=== PATIENT | female | born 1985 | race Caucasian/White ===

== ENCOUNTER 2016-12-03 11:08 | Emergency (ER) | payer OTHER ==
[2016-12-03 11:14] VITALS: TEMP 97.7; BMI 37.2
--- NOTE | 2016-12-03 12:02 | PDOC ---
History of Present Illness - General Chief Complaint: Vaginal Bleeding Stated Complaint: VAG BLEEDING Time Seen by Provider: 12/03/16 11:38 History Source: Patient Exam Limitations: No Limitations - History of Present Illness Travel History: No Initial Comments: 12/03/16 12:04 31-year-old female presents to the ED with complaints of vaginal bleeding for the past 20 days associated with heavy bleeding since clots. Patient states has had irregular menses for the past year and has gone to other ERs for evaluation was told she had no significant findings and to follow-up with DIRECTOR OF PERIOPERATIVE SERVICES. Patient states she only has emergency medical insurance and is unemployed so was unable to pay out of pocket and did not follow-up. Patient states also been having some suprapubic pain without nausea, vomiting or dysuria. Timing/Duration: reports: constant Quality: reports: mild, cramping Abdominal Pain Onset Location: reports: suprapubic (left) Pain Radiation: reports: no radiation Activities at Onset: reports: none Aggravating Factors: improves with: None Alleviating Factors: improves with: None Past History - Past Medical History Allergies/Adverse Reactions: Allergies Allergy/AdvReac Type Severity Reaction Status Date / Time No Known Allergies Allergy Verified 12/03/16 11:13 Home Medications: Ambulatory Orders NK [No Known Home Medication] 12/03/16 Other medical history: denies - Reproductive History Is Patient Now?: No - Psycho/Social/Smoking Cessation Hx Suicidal Ideation: No Smoking History: Never smoked Information on smoking cessation initiated: No Hx Alcohol Use: No Drug/Substance Use Hx: No Substance Use Type: None Patient Lives Alone: No Lives with/in: spouse/SO Review of Systems - Review of Systems Able to Perform ROS?: Yes Constitutional: No: Symptoms Reported HEENTM: No: Symptoms Reported Respiratory: No: Symptoms reported Cardiac (ROS): No: Symptoms Reported ABD/GI: Yes: Abdominal cramping : Yes: Discharge Integumentary: No: Symptoms Reported Neurological: No: Symptoms reported Endocrine: No: Symptoms Reported *Physical Exam - Vital Signs Last Vital Signs Temp Pulse Resp BP Pulse Ox 97.7 F 80 18 102/58 97 12/03/16 11:11 12/03/16 11:11 12/03/16 11:11 12/03/16 11:11 12/03/16 11:11 - Physical Exam General Appearance: Yes: Nourished, Appropriately Dressed. No: Apparent Distress HEENT: negative: Pale Conjunctivae Neck: positive: Normal Thyroid, Supple Respiratory/Chest: positive: Lungs Clear, Normal Breath Sounds. negative: Respiratory Distress, Accessory Muscle Use Cardiovascular: positive: Regular Rhythm, Regular Rate. negative: Murmur Female Pelvic Exam: positive: normal adnexa, vaginal bleeding (dark red no clots ) Gastrointestinal/Abdominal: positive: Soft, Tenderness (mild left suprapubic ) Extremity: positive: Normal Capillary Refill. negative: Pedal Edema Integumentary: positive: Normal Color, Warm. negative: Moist Neurologic: positive: Motor Strength 5/5 (ambulatory) ED Treatment Course - LABORATORY CBC & Chemistry Diagram: 12/03/16 12:02 12/03/16 12:02 - RADIOLOGY Radiology Studies Ordered: Category Date Time Status TRANSVAGINAL ULTRASOUND US [US] Stat Ultrasound 12/03/16 11:55 Ordered Medical Decision Making - Medical Decision Making 12/03/16 12:52 Patient complains of prolonged and irregular menses for the past year. Patient states did not follow DIRECTOR OF PERIOPERATIVE SERVICES although she has been told by 2 other emergency departments that she should follow-up with her DIRECTOR OF PERIOPERATIVE SERVICES. Patient lacks medical insurances for office visits and is currently unemployed and therefore utilizes the ER. Patient states has no other symptoms or for cramping and had the vaginal bleeding and denies any shortness of breath, nausea, or weakness. Pt on exam had dark red blood in the vault without clots. Patient had mild suprapubic discomfort but no left adnexal discomfort. Patient ordered for CBC, comp, urinalysis urine and ultrasound. Patient offered Tylenol but refused at this time. 12/03/16 14:08 Laboratory Tests 12/03/16 12:02 Urine Ketones Trace H Urine Blood 3+ H Urine Nitrite Positive Ur Leukocyte Esterase 1+ H Urine HCG, Qual Negative Laboratory Tests 12/03/16 12/03/16 12:02 12:02 WBC 12.0 H Hgb 11.8 Hct 35.8 Plt Count 314 Sodium 144 Potassium 4.3 Chloride 106 Carbon Dioxide 28 Anion Gap 10 BUN 24 H Creatinine 1.0 Random Glucose 94 Calcium 8.9 Total Bilirubin 0.2 AST 28 ALT 32 Albumin 3.6 Ultrasound shows a normal size uterus with no intrauterine masses. Pt with noted thickned endometrium is noted to be a 10 mm. Ovaries are normal size with normal arterial flow. There is no evidence of an adnexal masses or fluid in the pelvic region. Patient will be discharged home to follow-up with Dr. Galvin at the clinic. Patient with positive nitrates an 1+ leukocytes in urine. Patient has no complaints of urinary complaints urinary frequency, or suprapubic pressure. I've explained to the patient we will send a urine culture and if positive she will receive a call to start antibiotics. *DC/Admit/Observation/Transfer Diagnosis at time of Disposition: Prolonged menstrual cycle - Discharge Dispostion Disposition: HOME Condition at time of disposition: Good - Referrals Referrals: Madalyn Galvin MD [Staff Physician] - - Patient Instructions Printed Discharge Instructions: Heavy Menstrual Bleeding Additional Instructions: Follow-up with referred DIRECTOR OF PERIOPERATIVE SERVICES and return to ED if symptoms worsen. May take Motrin or Tylenol for discomfort.
[2016-12-03 12:18] LABS: BASOPHIL 0.4 % (0-2.0); EOSINOPHIL 4.1 % (0-4.5); MCH 26.9 pg (25.7-33.7); MCHC 32.9 g/dl (32.0-36.0); MEAN CELL VOLUME 81.9 fl (80-96); MEAN PLT VOLUME 7.7 fl (7.5-11.1); NEUTROPHILS 49.6 % (42.8-82.8); PLATELET COUNT 314 K/MM3 (134-434)
[2016-12-03 12:20] LABS: PH,URINE 6.5 (5.0-8.0); URINE APPEARANCE CLEAR; URINE BILIRUBIN NEGATIVE (NEGATIVE); URINE COLOR DK. RED; URINE GLUCOSE (UA) NEGATIVE (NEGATIVE); URINE KETONE TRACE (NEGATIVE); URINE UROBILINOGEN 1.0 E.U/dl E.U./dl (0.2-1.0)
[2016-12-03 12:22] LABS: URINE BLOOD 3+ (NEGATIVE); URINE LEUK ESTERASE 1+ (NEGATIVE); URINE NITRITE POSITIVE (NEGATIVE); URINE PROTEIN 2+ (NEGATIVE)
[2016-12-03 12:51] LABS: URINE RBC TOO MANY TO COUNT /hpf (0-3)
[2016-12-03 12:54] LABS: ALBUMIN 3.6 g/dl (3.4-5.0); ALK PHOS 84 U/L (45-117); ANION GAP 10 (8-16); BILIRUBIN,TOTAL 0.2 mg/dL (0.2-1.0); CALCIUM 8.9 mg/dL (8.5-10.1); CO2 28 mmol/L (21-32); GLUCOSE,RANDOM 94 mg/dL (74-106); SGOT/AST 28 U/L (15-37); SGPT/ALT 32 U/L (12-78); TOT PROT 7.2 g/dl (6.4-8.2)
[2016-12-03 14:49] VITALS: BP 110/65; PULSE 75
== END 2016-12-03 14:50 | disposition home or self-care (01) ==
LOC: JER 11:08
DX: N91.3 Primary oligomenorrhea (principal)
CPT/HCPCS: 36415; 76830-TC; 80053; 81003; 81015; 84703; 85025; 87086; 99284-25

== ENCOUNTER 2018-02-28 19:40 | Inpatient (IN) | payer OTHER ==
[2018-02-28] MEDS ORDERED: CEFAZOLIN 2 GM/D5W 2 GM/50 ML ML IVPB ONE (21:05)
[2018-02-28] MEDS ORDERED: DEXTROSE 5%-LACTATED RINGERS 500 ML IV SCH (21:05)
[2018-02-28 21:11] LABS: URINE APPEARANCE CLEAR; URINE BILIRUBIN NEGATIVE (<2.0 mg/dL); URINE COLOR COLORLESS; URINE GLUCOSE (UA) NEGATIVE (NEGATIVE); URINE KETONE NEGATIVE (NEGATIVE); URINE LEUK ESTERASE NEGATIVE (NEGATIVE); URINE NITRITE NEGATIVE (NEGATIVE); URINE PROTEIN NEGATIVE (NEGATIVE); URINE UROBILINOGEN NEGATIVE mg/dL (0.2-1.0)
[2018-02-28 21:14] LABS: EPI CELLS RARE /HPF (FEW)
[2018-02-28] MEDS ORDERED: ceFAZolin SODIUM 1 GM VIAL ONE (21:22)
[2018-02-28] MEDS ORDERED: MEPERIDINE HCL CARPU-JECT 50 MG/1 ML DISP.SYRIN ONE (22:53)
[2018-02-28] MEDS ORDERED: DEXTROSE 5%-LACTATED RINGERS 1,000 ML IV SCH (23:15)
[2018-02-28] MEDS: MEPERIDINE HCL CARPU-JECT 50 MG/1 ML DISP.SYRIN IM PRN (23:32)
--- NOTE | 2018-02-28 23:53 | HP ---
Admitting History and Physical - Admission Chief Complaint: Left sided pain / painful urination History of Present Illness: 32 yo , @ 24.6 weeks gestation presented to L& D c/o left flank pain associated with dysuria. History Source: Patient Limitations to Obtaining History: No Limitations - Past Medical History ...: 2 ...Para: 0 - Past Surgical History Past Surgical History: Yes: None - Smoking History Smoking history: Never smoked - Alcohol/Substance Use Hx Alcohol Use: No History of Substance Use: reports: None - Social History Usual Living Arrangement: Yes: With Significant Other History of Recent Travel: No Home Medications - Allergies Allergies/Adverse Reactions: Allergies Allergy/AdvReac Type Severity Reaction Status Date / Time No Known Allergies Allergy Verified 12/03/16 11:13 - Home Medications Home Medications: Ambulatory Orders NK [No Known Home Medication] 12/03/16 Family Disease History - Family Disease History Family History: Unremarkable Review of Systems - Review of Systems Constitutional: denies: Chills, Fever Eyes: reports: No Symptoms HENT: reports: No Symptoms Neck: reports: No Symptoms Cardiovascular: reports: No Symptoms Respiratory: reports: No Symptoms Gastrointestinal: reports: No Symptoms Genitourinary: denies: Pain Breasts: reports: No Symptoms Reported Musculoskeletal: reports: No Symptoms Integumentary: denies: Lesions, Pruritis, Rash Neurological: reports: No Symptoms Endocrine: reports: No Symptoms Hematology/Lymphatic: reports: No Symptoms Psychiatric: reports: No Symptoms Pain Intensity: 7 Physical Examination Vital Signs: Vital Signs Temperature 98.0 F 02/28/18 22:05 Pulse Rate 72 02/28/18 22:05 Respiratory Rate 20 02/28/18 22:05 Blood Pressure 98/48 02/28/18 22:05 O2 Sat by Pulse Oximetry (%) Constitutional: Yes: Well Nourished Eyes: Yes: Conjunctiva Clear HENT: Yes: Atraumatic Neck: Yes: Supple Cardiovascular: Yes: Regular Rate and Rhythm Respiratory: Yes: Regular Gastrointestinal: Yes: Normal Bowel Sounds Musculoskeletal: Yes: WNL Extremities: Yes: WNL Neurological: Yes: Alert, Oriented ...Motor Strength: WNL Psychiatric: Yes: Alert, Oriented Problem List - Problems (1) Left flank pain Code(s): R10.9 - UNSPECIFIED ABDOMINAL PAIN (2) Pyelonephritis affecting in second trimester Code(s): O23.02 - INFECTIONS OF KIDNEY IN , SECOND TRIMESTER Assessment/Plan 24 weeks gestation Pyelonephritis Ancef Daily CBC vitamin Tylenol PRN fever Demerol PRN pain
[2018-03-01 00:11] VITALS: BMI 43.0
[2018-03-01 00:13] LABS: BASO % 0.3 % (0-2.0); EOS % 2.6 % (0-4.5); HEMATOCRIT 33.1 % (32.4-45.2); LYMPH % 26.5 % (8-40); MCH 27.7 pg (25.7-33.7); MCHC 33.3 g/dl (32.0-36.0); MEAN CELL VOLUME 83.2 fl (80-96); MEAN PLT VOLUME 8.3 fl (7.5-11.1); MONO % 6.7 % (3.8-10.2); NEUT % 63.9 % (42.8-82.8); PLATELET COUNT 296 K/MM3 (134-434); RBC 3.98 M/mm3 (3.60-5.2); RDW 14.5 % (11.6-15.6); WHITE BLOOD COUNT 12.8 K/mm3 (4.0-10.0)
[2018-03-01] MEDS: ACETAMINOPHEN 325 MG TABLET (FP) PO PRN ×4 (01:18→22:37)
[2018-03-01] MEDS: MEPERIDINE HCL CARPU-JECT 50 MG/1 ML DISP.SYRIN IM PRN ×3 (02:35→20:26)
[2018-03-01] MEDS ORDERED: ceFAZolin SODIUM 1 GM VIAL ONE (05:48)
[2018-03-01] MEDS: CEFAZOLIN 2 GM/D5W 2 GM/50 ML ML IVPB SCH ×5 (06:01→22:51)
--- NOTE | 2018-03-01 13:34 | PN ---
Progress Note, Physician Chief Complaint: Left flank pain History of Present Illness: 32 yo @ 24 weeks gestation admitted with Pyelonephritis. She's been on IV antibiotic but continues to experience left samara pain. - Current Medication List Current Medications: Active Medications Acetaminophen (Tylenol -) 650 mg PO Q4H PRN PRN Reason: FEVER Last Admin: 03/01/18 10:32 Dose: 650 mg Cefazolin Sodium/Dextrose (Ancef 2 Gm Premixed Ivpb -) 2 gm in 50 mls @ 100 mls /hr IVPB Q8H MARY Last Admin: 03/01/18 06:19 Dose: Not Given Dextrose/Lactated Ringer's (D5-Lr -) 1,000 mls @ 125 mls/hr IV ASDIR MARY Meperidine HCl (Demerol Injection -) 50 mg IM Q3H PRN PRN Reason: PAIN 4-6 Last Admin: 03/01/18 05:37 Dose: 50 mg - Objective Vital Signs: Vital Signs Temperature 98.4 F 03/01/18 09:02 Pulse Rate 66 03/01/18 09:02 Respiratory Rate 20 03/01/18 09:02 Blood Pressure 95/58 03/01/18 09:02 O2 Sat by Pulse Oximetry (%) Constitutional: Yes: Well Nourished Eyes: Yes: Conjunctiva Clear HENT: Yes: Atraumatic Neck: Yes: Supple Cardiovascular: Yes: Regular Rate and Rhythm Respiratory: Yes: Regular Gastrointestinal: Yes: Normal Bowel Sounds Genitourinary: Yes: CVA Tenderness - Left, Breast(s): Yes: WNL Musculoskeletal: Yes: WNL Extremities: Yes: WNL Neurological: Yes: Alert, Oriented ...Motor Strength: WNL Psychiatric: Yes: Alert, Oriented Labs: CBC, BMP 02/28/18 23:50 Problem List - Problems (1) Left flank pain Code(s): R10.9 - UNSPECIFIED ABDOMINAL PAIN (2) Pyelonephritis affecting in second trimester Code(s): O23.02 - INFECTIONS OF KIDNEY IN , SECOND TRIMESTER Assessment/Plan Pyelonephritis IUP @ 24 weeks Continue IV antibiotic F/U renal sonogram
[2018-03-01] MEDS: DEXTROSE 5%-LACTATED RINGERS 1,000 ML IV SCH (20:27)
[2018-03-01] MEDS ORDERED: MEPERIDINE HCL-PF 50 MG/ML VIAL IM PRN (21:25)
[2018-03-01] MEDS ORDERED: MEPERIDINE HCL CARPU-JECT 25 MG/1 ML DISP.SYRIN IM PRN (21:56)
[2018-03-02] MEDS: CEFAZOLIN 2 GM/D5W 2 GM/50 ML ML IVPB SCH ×3 (05:08→21:22)
[2018-03-02] MEDS: DEXTROSE 5%-LACTATED RINGERS 1,000 ML IV SCH ×2 (05:08→16:30)
--- NOTE | 2018-03-02 06:35 | PN ---
Progress Note (short form) - Note Progress Note: 24 weeks pregnacy HSday #3 c/o Left flank pain , it is less now, she has not taken any pain meds today AM she was given Mepridine 50 mg IM last night at 21.37 hr & Po tylenol before that. no c/o burning urination no c/o fever FM active Selected Entries 03/02/18 06:00 Temperature 98.4 F Pulse Rate 78 Blood Pressure 100/64 o/e obese patient p/a 24 weeks IUP, FPF,, FHS checked by RN with doppler 136 bpm Lt flank tenderness still present . Labs reviewed Imp 24 wks iup, with Left Flank Pain ? AC Pyelonephritis on Iv Ancef 2gm q 8h r/o renal colic due to calculi Renal ultrasound done, report pending Urine c/s report pending Plan ct care pending above results
[2018-03-02] MEDS: ACETAMINOPHEN 325 MG TABLET (FP) PO PRN ×3 (09:35→21:22)
[2018-03-02 23:39] VITALS: PULSE 70
[2018-03-03] MEDS: CEFAZOLIN 2 GM/D5W 2 GM/50 ML ML IVPB SCH (09:13)
--- NOTE | 2018-03-03 09:43 | DS ---
Physical Examination Vital Signs: Vital Signs Temperature 98.2 F 03/02/18 21:00 Pulse Rate 70 03/02/18 21:00 Respiratory Rate 20 03/02/18 21:00 Blood Pressure 97/51 03/02/18 21:00 O2 Sat by Pulse Oximetry (%) 97 03/01/18 22:00 Constitutional: Yes: Well Nourished Eyes: Yes: Conjunctiva Clear HENT: Yes: Atraumatic Neck: Yes: Supple Cardiovascular: Yes: Regular Rate and Rhythm Respiratory: Yes: Regular Gastrointestinal: Yes: Normal Bowel Sounds Musculoskeletal: Yes: WNL Extremities: Yes: WNL Neurological: Yes: Alert, Oriented ...Motor Strength: WNL Psychiatric: Yes: Alert, Oriented Labs: CBC, BMP 02/28/18 23:50 Discharge Summary Reason For Visit: PYELONEPHRITIS Current Active Problems Left flank pain (Acute) Pyelonephritis affecting in second trimester (Acute) Procedures: Principal: IV antibiotic Hospital Course: Patient admitted for Pyelonephritis IV antibiotic given for 48 hours Condition: Good - Instructions Diet, Activity, Other Instructions: Regular diet Continue PO antibiotic F/U in clinic as scheduled Disposition: HOME - Home Medications Comprehensive Discharge Medication List: Ambulatory Orders Cephalexin Monohydrate [Keflex -] 500 mg PO BID #14 capsule 03/03/18
[2018-03-03 11:30] VITALS: BP 99/43; TEMP 98.3
[2018-03-03] MEDS: ACETAMINOPHEN 325 MG TABLET (FP) PO PRN (11:40)
== END 2018-03-03 12:40 | disposition home or self-care (01) | DRG 566 ==
LOC: JDEL 19:40 → JLDR 22:40 → J3W 03-01 00:50
PROVIDERS: ADMIT Obstetrics & Gynecology; ATTEND Obstetrics & Gynecology
DX: O23.02 Infections of kidney in pregnancy, second trimester (principal); N10 Acute pyelonephritis; Z3A.24 24 weeks gestation of pregnancy
CPT/HCPCS: 36415; 76775-TC; 81003; 81015; 85025; 87086

== ENCOUNTER 2018-06-19 08:40 | Inpatient (IN) | payer OTHER ==
--- NOTE | 2018-06-19 10:31 | HP ---
Past Medical History - Admission Chief Complaint: Uterine contractions History Source: Patient (33yo @ 40.5wks here in labor. + ctx. No VB/LOF. + FM) - Past Medical History ...: 2 ...Para: 0 ...Term: 0 ...: 0 ...Spon : 1 ...Induced : 0 ...Multiple Gestation: 0 ...LMP: 09/07/17 ... Weeks Gestation by Dates: 40.5 ...EDC by Dates: 06/14/18 ...EDC by Sono: 06/15/18 - Past Surgical History Past Surgical History: Yes: None Hx Myomectomy: No Hx Transabdominal Cerclage: No - Smoking History Smoking history: Never smoked Have you smoked in the past 12 months: No - Alcohol/Substance Use Hx Alcohol Use: No History of Substance Use: reports: None - Social History History of Recent Travel: No Home Medications - Allergies Allergies/Adverse Reactions: Allergies Allergy/AdvReac Type Severity Reaction Status Date / Time No Known Allergies Allergy Verified 06/19/18 09:35 - Home Medications Home Medications: Ambulatory Orders Albuterol Sulfate Inhaler - [Ventolin Hfa Inhaler -] 1 puff IH PRN PRN 05/03/18 Ferrous Sulfate [Iron] 325 mg PO DAILY 05/03/18 Vitamins (Sjr) - 1 tab PO DAILY 05/03/18 Review of Systems Findings/Remarks: +ctx. No VB/LOF. Physical Exam - Maternity Vital Signs: Vital Signs Temperature 98.1 F 06/19/18 10:00 Pulse Rate 73 06/19/18 10:00 Respiratory Rate 20 06/19/18 10:00 Blood Pressure 113/63 06/19/18 10:00 O2 Sat by Pulse Oximetry (%) - Abdominal Exam/OB Number of Fetuses: Single Presentation: Vertex Contractions: Yes Regularity: Regular Intensity: Mod/Strong Monitor Mode: External Heart Rate (range): Cat 1 Category: I - Vaginal Exam/OB Vaginal Bleediing: No Dilatation (cm): 5 Effacement (%): 100 Amniotic Membrane Status: Bulging Presentation: Vertex/Position Station: -3 Problem List - Problems (1) Uterine contractions Code(s): [id number] - Assessment/Plan 33yo @ 40.5wks here in labor Admit to L&D Cat 1 tracing Desires NCB Anticipate LES Her MD
--- NOTE | 2018-06-19 10:37 | PN ---
Progress Note, Labor Vaginal Exam #1 Labor Exam Date: 06/19/18 Labor Exam Time: 10:36 Heart Rate (range): Cat 1 Dilatation: 5 Effacement (%): 100 Amniotic Membrane Status: Ruptured (Cat 1 tracing AROM, light meconium. PEDS for delivery Desires NCB Anticiapte LES Her MD) Presentation: Vertex/Position Station: -3
[2018-06-19 10:43] LABS: BASO % 0.4 % (0-2.0); EOS % 0.5 % (0-4.5); HEMATOCRIT 36.6 % (32.4-45.2); HEMOGLOBIN 12.1 GM/dL (10.7-15.3); LYMPH % 20.5 % (8-40); MCH 27.7 pg (25.7-33.7); MEAN CELL VOLUME 83.8 fl (80-96); MEAN PLT VOLUME 9.1 fl (7.5-11.1); MONO % 5.9 % (3.8-10.2); NEUT % 72.7 % (42.8-82.8); PLATELET COUNT 253 K/MM3 (134-434); RBC 4.37 M/mm3 (3.60-5.2); RDW 15.2 % (11.6-15.6); WHITE BLOOD COUNT 11.3 K/mm3 (4.0-10.0)
[2018-06-19 11:04] LABS: ANION GAP 12 MMOL/L (8-16); BLOOD UREA NITROGEN 19 mg/dL (7-18); CALCIUM 8.7 mg/dL (8.5-10.1); CHLORIDE 110 mmol/L (98-107); CO2 19 mmol/L (21-32); GLUCOSE,RANDOM 128 mg/dL (74-106); POTASSIUM 4.3 mmol/L (3.5-5.1); SODIUM 141 mmol/L (136-145)
[2018-06-19 11:05] LABS: INR 0.92 (0.83-1.09); PROTHROMBIN TIME (PATIENT) 10.9 SEC (9.7-13.0)
[2018-06-19 11:07] VITALS: BMI 46.0
[2018-06-19 11:08] LABS: ACTIVATED PTT 27.3 SECONDS (25.2-36.5)
--- NOTE | 2018-06-19 12:43 | PN ---
Progress Note, Labor Vaginal Exam #2 Labor Exam Date: 06/19/18 Labor Exam Time: 12:42 Heart Rate (range): Cat 1 Dilatation: 5 Effacement (%): 100 Amniotic Membrane Status: Ruptured Presentation: Vertex/Position Station: -3 (Cat 1 Unchanged SVE, start pitocin Anticipate Robert Her)
[2018-06-19] MEDS ORDERED: OXYTOCIN 30 UNITS in 0.9% NS 30 UNIT/500 ML INFUS.BAG IVPB SCH (12:45)
[2018-06-19] MEDS ORDERED: OXYTOCIN 20 UNITS in 0.9% NS 20 UNIT/1,000 ML INFUS.BAG IV ONE ×2 (12:50→22:08)
[2018-06-19] MEDS ORDERED: DEXTROSE 5%-LACTATED RINGERS 1,000 ML IV SCH (17:00)
--- NOTE | 2018-06-19 18:02 | PN ---
Progress Note, Labor Vaginal Exam #3 Labor Exam Date: 06/19/18 Labor Exam Time: 18:01 Heart Rate (range): Cat 1, early decels Dilatation: 8 Effacement (%): 100 Amniotic Membrane Status: Ruptured Presentation: Vertex/Position Station: -2 (Feeling more pain and pressure C/8/-2 FSE applied for ease of monitoring given habitus Continue pitocin Anticipate SVE)
--- NOTE | 2018-06-19 20:05 | PN ---
Progress Note, Labor Vaginal Exam #4 Labor Exam Date: 06/19/18 Labor Exam Time: 20:04 Heart Rate (range): Cat 1 Dilatation: 8-9 Effacement (%): 100 Amniotic Membrane Status: Ruptured Presentation: Vertex/Position Station: -1 (FHT Cat 1, early decels Cervix 8-9, slow progress all day despite active phase of labor IUPC placed, titrate pitocin to adequacy Anticipate Robert Her MD)
--- NOTE | 2018-06-19 21:29 | PN ---
Progress Note, Labor Vaginal Exam #5 Labor Exam Date: 06/19/18 Labor Exam Time: 21:10 Heart Rate (range): Cat 1 Dilatation: 10 Effacement (%): 100 Amniotic Membrane Status: Ruptured Presentation: Vertex/Position Station: +2 (Cat 1 tracing Start pushing Anticipate Robert Her MD)
[2018-06-19] MEDS ORDERED: BENZOCAINE 20% 57 GM BOTTLE TP PRN (22:37)
[2018-06-19] MEDS ORDERED: WITCH HAZEL 50% (TUCKS) 40 PAD/JAR PAD TP PRN (22:37)
[2018-06-19] MEDS ORDERED: BISACODYL 10 MG SUPP.RECT RC PRN (22:37)
[2018-06-19] MEDS ORDERED: BENZOCAINE 28 GM HEMORRHOIDAL OINTMENT TP PRN (22:37)
--- NOTE | 2018-06-19 22:37 | PN ---
Delivery - Delivery Vaginal Delivery: Spontaneous Type of Anesthesia: Local Episiotomy/Laceration: Right Mediolateral EBL (cc): 300 Delivery, Single - Stages of Labor Placenta: Yes: Spontaneous - [place] Feeding Plan Initial Plan: Exclusive throughout hospitalization Remarks - Remarks Remarks: of VFI over R mediolateral episotomy. No nuchal. Known meconium fluid. Local anesthesia given with 1% lidocaine prior to episiotomy. Spontaneous delivery of anterior shoulder. Cord clamped and cut. Infant handed off to nursing staff. Apgars 8/9. Weight pending. Spontaneous delivery of intact placenta. Fundus firm. Perineum inspected, mediolateral episotomy repaired with3 -0 vicryl. No other lacerations noted. EBL 300ml. Mother and baby doing well.
[2018-06-19] MEDS ORDERED: OXYTOCIN 20 UNITS in 0.9% NS 20 UNIT/1,000 ML INFUS.BAG IV SCH (22:45)
[2018-06-19] MEDS ORDERED: IBUPROFEN 600 MG TABLET (FP) PO ONE (23:53)
[2018-06-19] MEDS: IBUPROFEN 600 MG TABLET (FP) PO PRN (23:55)
[2018-06-20 07:17] LABS: BASO % 0.4 % (0-2.0); HEMATOCRIT 32.4 % (32.4-45.2); HEMOGLOBIN 10.6 GM/dL (10.7-15.3); MCH 27.4 pg (25.7-33.7); MCHC 32.8 g/dl (32.0-36.0); MEAN CELL VOLUME 83.5 fl (80-96); MEAN PLT VOLUME 8.9 fl (7.5-11.1); NEUT % 80.6 % (42.8-82.8); PLATELET COUNT 227 K/MM3 (134-434); RBC 3.89 M/mm3 (3.60-5.2); RDW 15.5 % (11.6-15.6); WHITE BLOOD COUNT 22.2 K/mm3 (4.0-10.0)
--- NOTE | 2018-06-20 07:49 | PN ---
Post Progress Note Type of Delivery: Vital Signs: Vital Signs Temperature 98.4 F 06/20/18 05:44 Pulse Rate 73 06/20/18 05:44 Respiratory Rate 18 06/20/18 05:44 Blood Pressure 83/42 L 06/20/18 05:44 O2 Sat by Pulse Oximetry (%) Uterus: Yes: Fundus Firm, Fundus @ umbilicus Abdomen/GI: Yes: Abdomen soft Lochia: Yes: Rubra Lochia, amount: Small Extremities: Yes: Calves non-tender Perineum: Yes: Episiotomy Activity: Ambulating - Labs Labs: CBC WBC 22.2 K/mm3 (4.0-10.0) H 06/20/18 06:30 RBC 3.89 M/mm3 (3.60-5.2) 06/20/18 06:30 Hgb 10.6 GM/dL (10.7-15.3) L 06/20/18 06:30 Hct 32.4 % (32.4-45.2) 06/20/18 06:30 MCV 83.5 fl (80-96) 06/20/18 06:30 MCH 27.4 pg (25.7-33.7) 06/20/18 06:30 MCHC 32.8 g/dl (32.0-36.0) 06/20/18 06:30 RDW 15.5 % (11.6-15.6) 06/20/18 06:30 Plt Count 227 K/MM3 (134-434) 06/20/18 06:30 MPV 8.9 fl (7.5-11.1) 06/20/18 06:30 Absolute Neuts (auto) 17.9 K/mm3 (1.5-8.0) H 06/20/18 06:30 Neutrophils % 80.6 % (42.8-82.8) 06/20/18 06:30 Lymphocytes % 13.0 % (8-40) D 06/20/18 06:30 Monocytes % 6.0 % (3.8-10.2) 06/20/18 06:30 Eosinophils % 0.0 % (0-4.5) D 06/20/18 06:30 Basophils % 0.4 % (0-2.0) 06/20/18 06:30 Nucleated RBC % 0 % (0-0) 06/20/18 06:30 Problem List - Problems (1) (normal spontaneous vaginal delivery) Code(s): O80 - ENCOUNTER FOR FULL-TERM UNCOMPLICATED DELIVERY Assessment/Plan 33yo s/p , PPD#1 -RH pos/RI/ girl -Routine PP care -Labs reviewed Anticipate d/c to home PPD#2 Robert Her MD
[2018-06-20] MEDS: FERROUS SO4 325 MG TABLET (FP) PO SCH ×3 (08:22→17:48)
[2018-06-20] MEDS: PRENATAL VITAMINS W/ FOLIC ACID TABLET (FP) PO SCH (09:59)
[2018-06-20] MEDS: IBUPROFEN 600 MG TABLET (FP) PO PRN (10:02)
[2018-06-20] MEDS: ACETAMINOPHEN 325 MG TABLET (FP) PO PRN (10:06)
[2018-06-20 10:18] LABS: ANISOCYTOSIS 0; MACROCYTOSIS 0; PLATELET ESTIMATE NORMAL
[2018-06-20] MEDS ORDERED: SENNOSIDES/DOCUSATE COMBO (SENNA PLUS) TABLET (UD) PO PRN (22:00)
[2018-06-21] MEDS: IBUPROFEN 600 MG TABLET (FP) PO PRN (05:33)
[2018-06-21] MEDS: ACETAMINOPHEN 325 MG TABLET (FP) PO PRN (05:33)
[2018-06-21] MEDS: FERROUS SO4 325 MG TABLET (FP) PO SCH ×2 (08:30→12:24)
[2018-06-21] MEDS: PRENATAL VITAMINS W/ FOLIC ACID TABLET (FP) PO SCH (09:51)
--- NOTE | 2018-06-21 11:34 | DS ---
Physical Exam-PAYROLL ANALYST Vital Signs: Vital Signs Temperature 98.1 F 06/20/18 21:00 Pulse Rate 78 06/20/18 21:00 Respiratory Rate 18 06/20/18 21:00 Blood Pressure 80/51 L 06/20/18 21:00 O2 Sat by Pulse Oximetry (%) Constitutional: Yes: Well Nourished Eyes: Yes: Conjunctiva Clear HENT: Yes: Atraumatic Neck: Yes: Supple Cardiovascular: Yes: Regular Rate and Rhythm Respiratory: Yes: Regular Gastrointestinal: Yes: Normal Bowel Sounds Pelvis: Yes: WNL External Genitalia: Yes: Normal Vaginal Exam: Yes: Normal Cervix: Yes: Normal Uterus: Yes: Firm ....Post : Yes: Uterus firm, Moderate lochia serosa Musculoskeletal: Yes: WNL Extremities: Yes: WNL Integumentary: Yes: WNL Neurological: Yes: Alert, Oriented ...Motor Strength: WNL Psychiatric: Yes: Alert, Oriented Labs: CBC, BMP 06/20/18 06:30 06/19/18 10:00 Delivery - Delivery Vaginal Delivery: Spontaneous Type of Anesthesia: Local Episiotomy/Laceration: Right Mediolateral EBL (cc): 300 Delivery, Single - Stages of Labor Date 1st Stage Initiatied: 06/19/18 Time 1st Stage Initiated: 04:00 Date 2nd Stage Initiated: 06/19/18 Time 2nd Stage Initiated: 21:30 Date of Delivery: 06/19/18 Time of Delivery: 22:20 Time Placenta Delivered: 22:25 Placenta: Yes: Spontaneous - Condition of Slot Supervisor/General Surgery Physician Assistant Present: No Gender: Female Weight: 7 lb 3 oz Position: Right, OA Total Hours ROM (Hrs/Mins): 12h - 1 Minute Total Score: 8 5 Minutes Total Score: 9 - Feeding Plan Initial Plan: Exclusive throughout hospitalization Discharge Summary Reason For Visit: LABOR ADMIT Current Active Problems (normal spontaneous vaginal delivery) (Acute) Uterine contractions (Acute) Procedures: Principal: Normal spontaneous vaginal delivery Hospital Course: Routine care Condition: Good - Instructions Diet, Activity, Other Instructions: Regular diet No douching, no sexual intercourse x 6 weeks F/U in clinic in 6 weeks Disposition: HOME - Home Medications Comprehensive Discharge Medication List: Ambulatory Orders Albuterol Sulfate Inhaler - [Ventolin Hfa Inhaler -] 1 puff IH PRN PRN 05/03/18 Ferrous Sulfate [Iron] 325 mg PO DAILY 05/03/18 Vitamins (Sjr) - 1 tab PO DAILY 05/03/18
[2018-06-21 14:33] VITALS: BP 130/71; PULSE 82; TEMP 97.8
== END 2018-06-21 14:00 | disposition home or self-care (01) | DRG 560 ==
LOC: JDEL 08:40 → JLDR 08:50 → JDEL 09:01 → J3W 06-20 00:33
PROVIDERS: ADMIT Obstetrics & Gynecology; ATTEND Obstetrics & Gynecology
PROC: 10E0XZZ Delivery of Products of Conception, External Approach (ICD-10-PCS; principal; 2018-06-19)
PROC: 0W8NXZZ Division of Female Perineum, External Approach (ICD-10-PCS; 2018-06-19)
DX: O80 Encounter for full-term uncomplicated delivery (principal); Z3A.40 40 weeks gestation of pregnancy; Z37.0 Single live birth
CPT/HCPCS: 36415; 59409; 80048; 85025; 85610; 85730; 86593; 86850; 86900; 86901

== ENCOUNTER 2021-04-06 03:09 | Observation (INO) | payer OTHER ==
[2021-04-06 06:09] LABS: EPI CELLS >36 /uL (0-25.1); HYALINE CASTS 0 /uL (0-3.1); PH,URINE 6.5 (5.0-8.0); URINE APPEARANCE CLOUDY; URINE BACTERIA 1387 /uL (0-1359); URINE BILIRUBIN NEGATIVE (NEGATIVE); URINE COLOR YELLOW; URINE GLUCOSE (UA) NEGATIVE (NEGATIVE); URINE KETONE NEGATIVE (NEGATIVE); URINE LEUK ESTERASE 3+ (NEGATIVE); URINE NITRITE NEGATIVE (NEGATIVE); URINE PROTEIN NEGATIVE (NEGATIVE); URINE RBC 7 /uL (0-23.9); URINE WBC 75 /uL (0-25.8)
[2021-04-06 06:11] LABS: BASO % 0.4 % (0-2.0); EOS % 2.7 % (0-4.5); HEMATOCRIT 38.4 % (32.4-45.2); HEMOGLOBIN 12.4 GM/dL (10.7-15.3); LYMPH % 33.3 % (8-40); MCH 26.3 pg (25.7-33.7); MCHC 32.3 g/dl (32.0-36.0); MEAN CELL VOLUME 81.6 fl (80-96); MEAN PLT VOLUME 7.9 fl (7.5-11.1); MONO % 5.3 % (3.8-10.2); NEUT % 58.3 % (42.8-82.8); PLATELET COUNT 274 10^3/uL (134-434); RBC 4.71 M/mm3 (3.60-5.2); RDW 15.3 % (11.6-15.6); WHITE BLOOD COUNT 11.4 K/mm3 (4.0-10.0)
[2021-04-06] MEDS ORDERED: morphine CARPU-JECT 2 MG/1 ML DISP.SYRIN IVPUSH ONE (06:17)
[2021-04-06] MEDS ORDERED: CEFTRIAXONE 1 GM in DEXTROSE 5%-WATER - 50 ML IVPB ONE (06:18)
[2021-04-06] MEDS ORDERED: MAG HYDROX/AL HYDROX/SIMETH 30 ML UNIT-DOSE CUP PO ONE (06:18)
[2021-04-06] MEDS ORDERED: MORPHINE SULFATE 2 MG/ML VIAL ONE (06:27)
[2021-04-06] MEDS ORDERED: MAG HYDROX/AL HYDROX/SIMETH 30 ML UNIT-DOSE CUP ONE (06:27)
[2021-04-06] MEDS ORDERED: CEFTRIAXONE 1 GM/50 ML BAG ONE (06:28)
[2021-04-06 06:32] LABS: ALBUMIN 3.2 g/dl (3.4-5.0); BLOOD UREA NITROGEN 10.6 mg/dL (7-18); CALCIUM 8.9 mg/dL (8.5-10.1)
[2021-04-06 06:35] LABS: CREATININE 0.9 mg/dL (0.55-1.3)
[2021-04-06 06:37] LABS: BILIRUBIN,TOTAL 0.2 mg/dL (0.2-1); TOT PROT 6.9 g/dl (6.4-8.2)
[2021-04-06] MEDS ORDERED: ACETAMINOPHEN 325 MG TABLET (FP) PO PRN (10:10)
[2021-04-06] MEDS ORDERED: ALBUTEROL SO4 HFA INHALER IH PRN (10:13)
[2021-04-06 16:27] VITALS: BMI 44.8
[2021-04-07 08:36] LABS: HEMATOCRIT 36.9 % (32.4-45.2); HEMOGLOBIN 12.4 GM/dL (10.7-15.3); MCH 26.8 pg (25.7-33.7); MCHC 33.6 g/dl (32.0-36.0); MEAN CELL VOLUME 79.7 fl (80-96); MEAN PLT VOLUME 7.7 fl (7.5-11.1); PLATELET COUNT 271 10^3/uL (134-434); RBC 4.63 M/mm3 (3.60-5.2); RDW 14.9 % (11.6-15.6); WHITE BLOOD COUNT 10.1 K/mm3 (4.0-10.0)
[2021-04-07 09:03] LABS: BLOOD UREA NITROGEN 10.4 mg/dL (7-18); CALCIUM 8.7 mg/dL (8.5-10.1)
[2021-04-07 09:06] LABS: CREATININE 0.8 mg/dL (0.55-1.3)
[2021-04-07] MEDS ORDERED: DEXTROSE 5%-WATER - 50 ML IVPB ONE ×2 (09:45→09:46)
[2021-04-07] MEDS ORDERED: cefTRIAXone SODIUM 1 GM VIAL ONE ×2 (09:45→09:46)
[2021-04-07] MEDS ORDERED: PT OWN MED DRAWER 7, Y5N ONE (09:46)
[2021-04-07] MEDS ORDERED: FERROUS SO4 325 MG TABLET (FP) PO SCH (10:00)
[2021-04-07] MEDS ORDERED: CEFTRIAXONE 1 GM in DEXTROSE 5%-WATER - 50 ML IVPB SCH (10:00)
[2021-04-07] MEDS ORDERED: PRENATAL VITAMINS W/ FOLIC ACID TABLET (FP) PO SCH (10:00)
[2021-04-07 12:06] VITALS: BP 106/71; PULSE 76; TEMP 98.2
== END 2021-04-07 13:30 | disposition home or self-care (01) ==
LOC: JER 03:09 → INTOOBSV 08:00 → JERBED 08:00 → UNDOADMOB 08:00 → JERBED 12:16 → J6S 12:16 → JERBED 04-07 11:38 → J6S 04-07 11:38
PROVIDERS: ADMIT Internal Medicine; ATTEND Nurse Practitioner Acute Care
PROC: 3E03329 Introduction of Other Anti-infective into Peripheral Vein, Percutaneous Approach (ICD-10-PCS; principal; 2021-04-07)
PROC: 3E033NZ Introduction of Analgesics, Hypnotics, Sedatives into Peripheral Vein, Percutaneous Approach (ICD-10-PCS; 2021-04-07)
DX: O23.01 Infections of kidney in pregnancy, first trimester (principal); Z3A.09 9 weeks gestation of pregnancy
CPT/HCPCS: 36415; 76801-TC; 80048; 80053; 81003; 84702; 85025; 85027; 87086; 96365; 96375; 99285-25; C9803; G0378; U0003; U0005

== ENCOUNTER 2021-11-05 08:35 | Inpatient (IN) | payer OTHER ==
[2021-11-05] MEDS ORDERED: OXYTOCIN 30 UNITS in 0.9% NS 30 UNIT/500 ML INFUS.BAG IVPB SCH (09:15)
[2021-11-05 09:55] LABS: BASO % 0.4 % (0-2.0); HEMATOCRIT 32.3 % (32.4-45.2); HEMOGLOBIN 10.6 GM/dL (10.7-15.3); LYMPH % 26.8 % (8-40); MCH 27.2 pg (25.7-33.7); MCHC 32.7 g/dl (32.0-36.0); MEAN CELL VOLUME 83.1 fl (80-96); MEAN PLT VOLUME 8.8 fl (7.5-11.1); MONO % 5.4 % (3.8-10.2); NEUT % 65.4 % (42.8-82.8); PLATELET COUNT 255 10^3/uL (134-434); RBC 3.89 M/mm3 (3.60-5.2); RDW 15.2 % (11.6-15.6); WHITE BLOOD COUNT 9.1 K/mm3 (4.0-10.0)
[2021-11-05 09:56] LABS: INR 0.95 (0.83-1.09); PROTHROMBIN TIME (PATIENT) 10.9 SEC (9.7-13.0)
[2021-11-05 09:59] LABS: ACTIVATED PTT 26.2 SECONDS (25.2-36.5)
[2021-11-05 10:11] LABS: CALCIUM 8.9 mg/dL (8.5-10.1)
[2021-11-05 10:16] LABS: CREATININE 1.1 mg/dL (0.55-1.3)
[2021-11-05] MEDS: ELECTROLYTE-148 SOLN 1,000 ML IV SCH ×2 (10:34→16:50)
[2021-11-05 11:33] VITALS: BMI 47.5
[2021-11-05] MEDS ORDERED: FENTANYL/BUPIVACAINE/NS/PF - PCEA - 50 ML DISP.SYRIN EP ONE ×2 (15:53→20:12)
[2021-11-05] MEDS ORDERED: LIDOCAINE HCL/PF 2% SDV 5ML VIAL ONE (15:55)
[2021-11-05] MEDS: FENTANYL/BUPIVACAINE/NS/PF - PCEA - 50 ML DISP.SYRIN EP SCH ×2 (16:15→20:15)
[2021-11-05] MEDS ORDERED: BUPIVACAINE HCL/PF 0.25% (2.5MG/ML) 10 ML VIAL ONE (16:17)
[2021-11-05] MEDS ORDERED: NALOXONE HCL 0.4 MG/ML VIAL IVPUSH PRN (16:26)
[2021-11-05] MEDS ORDERED: OXYTOCIN 20 UNITS in 0.9% NS 20 UNIT/1,000 ML INFUS.BAG IV ONE ×2 (21:30→23:20)
[2021-11-05] MEDS ORDERED: LIDOCAINE HCL 1% PRESERVATIVE FREE - 30ML VIAL ONE (21:30)
[2021-11-05] MEDS ORDERED: METHYLERGONOVINE MALEATE 0.2 MG/1 ML AMP IM PRN (23:05)
[2021-11-05] MEDS ORDERED: MISOPROSTOL 200 MCG TABLET NR ONE (23:05)
[2021-11-05] MEDS ORDERED: WITCH HAZEL 50% (TUCKS) 40 PAD/JAR PAD TP PRN (23:05)
[2021-11-05] MEDS ORDERED: BENZOCAINE 20% 57 GM BOTTLE TP PRN (23:05)
[2021-11-05] MEDS ORDERED: ACETAMINOPHEN 325 MG TABLET (FP) PO PRN (23:05)
[2021-11-05] MEDS ORDERED: BISACODYL 10 MG SUPP.RECT RC PRN (23:05)
[2021-11-05] MEDS ORDERED: BENZOCAINE 28 GM HEMORRHOIDAL OINTMENT TP PRN (23:05)
[2021-11-05] MEDS ORDERED: OXYTOCIN 20 UNITS in 0.9% NS 20 UNIT/1,000 ML INFUS.BAG IV SCH (23:15)
[2021-11-05] MEDS ORDERED: IBUPROFEN 600 MG TABLET (FP) PO ONE (23:54)
[2021-11-05] MEDS: IBUPROFEN 600 MG TABLET (FP) PO PRN (23:55)
[2021-11-06 09:44] LABS: BASO % 0.3 % (0-2.0); EOS % 0.2 % (0-4.5); HEMATOCRIT 34.1 % (32.4-45.2); HEMOGLOBIN 10.9 GM/dL (10.7-15.3); LYMPH % 16.8 % (8-40); MCH 26.4 pg (25.7-33.7); MCHC 32.1 g/dl (32.0-36.0); MEAN CELL VOLUME 82.3 fl (80-96); MEAN PLT VOLUME 9.1 fl (7.5-11.1); MONO % 4.9 % (3.8-10.2); NEUT % 77.8 % (42.8-82.8); PLATELET COUNT 278 10^3/uL (134-434); RBC 4.14 M/mm3 (3.60-5.2); RDW 15.4 % (11.6-15.6); WHITE BLOOD COUNT 17.9 K/mm3 (4.0-10.0)
[2021-11-06] MEDS: PRENATAL VITAMINS W/ FOLIC ACID TABLET (FP) PO SCH (11:01)
[2021-11-06] MEDS: IBUPROFEN 600 MG TABLET (FP) PO PRN ×2 (11:56→17:46)
[2021-11-06] MEDS ORDERED: SENNOSIDES/DOCUSATE COMBO (SENNA PLUS) TABLET (UD) PO PRN (22:00)
[2021-11-07] MEDS: IBUPROFEN 600 MG TABLET (FP) PO PRN ×2 (02:12→08:23)
[2021-11-07] MEDS: PRENATAL VITAMINS W/ FOLIC ACID TABLET (FP) PO SCH (10:46)
[2021-11-07 12:09] VITALS: BP 104/71; PULSE 91; TEMP 97.9
== END 2021-11-07 14:55 | disposition home or self-care (01) | DRG 560 ==
LOC: JLDR 08:35 → J3W 11-06 00:55
PROVIDERS: ADMIT Obstetrics & Gynecology; ATTEND Obstetrics & Gynecology
PROC: 10E0XZZ Delivery of Products of Conception, External Approach (ICD-10-PCS; principal; 2021-11-05)
PROC: 10907ZC Drainage of Amniotic Fluid, Therapeutic from Products of Conception, Via Natural or Artificial Opening (ICD-10-PCS; 2021-11-05)
PROC: 3E033VJ Introduction of Other Hormone into Peripheral Vein, Percutaneous Approach (ICD-10-PCS; 2021-11-05)
DX: O48.0 Post-term pregnancy (principal); O99.214 Obesity complicating childbirth; E66.01 Morbid (severe) obesity due to excess calories; Z3A.40 40 weeks gestation of pregnancy; Z37.0 Single live birth
CPT/HCPCS: 36415; 59409; 80048; 85025; 85610; 85730; 86780; 86850; 86900; 86901; C9803; U0003; U0005

== ENCOUNTER 2021-12-08 05:16 | Day surgery (SDC) | payer OTHER ==
[2021-12-03 14:54] VITALS: BMI 43.5
[2021-12-08] MEDS ORDERED: BUPIVACAINE HCL/PF 0.25% (2.5MG/ML) 10 ML VIAL ONE (10:37)
[2021-12-08] MEDS ORDERED: BUPIVACAINE HCL/PF 0.25% (2.5MG/ML) 10 ML VIAL IJ ONE ×3 (10:45→12:01)
[2021-12-08] MEDS ORDERED: MIDAZOLAM HCL 2 MG/2 ML SINGLE DOSE VIAL ONE (10:50)
[2021-12-08] MEDS ORDERED: PROPOFOL 20 ML ONE (10:50)
[2021-12-08] MEDS ORDERED: DEXAMETHASONE SOD PHOSPHATE 4 MG/1 ML VIAL ONE (11:54)
[2021-12-08] MEDS ORDERED: ONDANSETRON 4 MG/2 ML VIAL ONE (11:54)
[2021-12-08] MEDS ORDERED: ACETAMINOPHEN INJECTION 100 ML IVPB ONE (12:16)
[2021-12-08] MEDS ORDERED: NEOSTIGMINE METHYLSULFATE 0.5 MG/ML - 10 ML MDV ONE (12:25)
[2021-12-08] MEDS ORDERED: oxyCODONE HCL 5 MG TABLET PO PRN ×2 (12:34)
[2021-12-08] MEDS ORDERED: ONDANSETRON 4 MG/2 ML VIAL IVPUSH PRN (12:34)
[2021-12-08] MEDS ORDERED: LACTATED RINGERS SOLUTION 1,000 ML IV SCH (12:45)
[2021-12-08 15:12] VITALS: PULSE 65; TEMP 97.8
[2021-12-08 15:15] VITALS: BP 128/67
== END 2021-12-08 15:15 | disposition home or self-care (01) ==
LOC: JASU-SURG 05:16
PROVIDERS: ATTEND Obstetrics & Gynecology
PROC: 0UT74ZZ Resection of Bilateral Fallopian Tubes, Percutaneous Endoscopic Approach (ICD-10-PCS; principal; 2021-12-08 11:36)
DX: Z30.2 Encounter for sterilization (principal)
CPT/HCPCS: 81025; 88302-TC; 94760

== ENCOUNTER 2022-11-15 14:02 | Emergency (ER) | payer OTHER ==
[2022-11-15 14:23] VITALS: BP 114/69; PULSE 70; RESP 18; TEMP 98; BMI 40.2
[2022-11-15 16:07] LABS: BASO % 0.4 % (0-2.0); EOS % 4.2 % (0-4.5); HEMATOCRIT 36.2 % (32.4-45.2); HEMOGLOBIN 12.1 GM/dL (10.7-15.3); LYMPH % 45.7 % (8-40); MCHC 33.5 g/dl (32.0-36.0); MEAN CELL VOLUME 80.7 fl (80-96); MEAN PLT VOLUME 7.6 fl (7.5-11.1); MONO % 5.2 % (3.8-10.2); NEUT % 44.5 % (42.8-82.8); PLATELET COUNT 273 10^3/uL (134-434); RBC 4.48 M/mm3 (3.60-5.2); RDW 14.9 % (11.6-15.6); WHITE BLOOD COUNT 8.4 K/mm3 (4.0-10.0)
[2022-11-15 16:12] LABS: INR 1.11 (0.83-1.09); PROTHROMBIN TIME (PATIENT) 12.9 SEC (9.7-13.0)
[2022-11-15 16:20] LABS: ALBUMIN 3.2 g/dl (3.4-5.0)
[2022-11-15 16:23] LABS: CREATININE 1.1 mg/dL (0.55-1.3)
[2022-11-15 16:24] LABS: BILIRUBIN,TOTAL 0.2 mg/dL (0.2-1); TOT PROT 7.1 g/dl (6.4-8.2)
[2022-11-15] MEDS ORDERED: KETOROLAC TROMETHAMINE 30 MG/1 ML VIAL IM ONE (18:52)
[2022-11-15] MEDS ORDERED: CYCLOBENZAPRINE HCL 10 MG TABLET (FP) PO ONE (18:52)
[2022-11-15] MEDS ORDERED: ACETAMINOPHEN 1000 MG/100 ML BAG IVPB ONE (18:52)
[2022-11-15] MEDS ORDERED: ACETAMINOPHEN INJECTION 100 ML IVPB ONE ×2 (19:00→19:08)
[2022-11-15] MEDS ORDERED: CYCLOBENZAPRINE HCL 10 MG TABLET (FP) ONE ×2 (19:01→19:08)
[2022-11-15] MEDS ORDERED: KETOROLAC TROMETHAMINE 30 MG/1 ML VIAL ONE ×2 (19:01→19:08)
== END 2022-11-15 19:48 | disposition home or self-care (01) ==
LOC: JER 14:02
PROC: 3E023GC Introduction of Other Therapeutic Substance into Muscle, Percutaneous Approach (ICD-10-PCS; principal; 2022-11-15)
PROC: 3E033GC Introduction of Other Therapeutic Substance into Peripheral Vein, Percutaneous Approach (ICD-10-PCS; principal; 2022-11-15)
DX: K42.9 Umbilical hernia without obstruction or gangrene (principal)
CPT/HCPCS: 36415; 74177-TC; 80053; 84703; 85025; 85610; 86850; 86900; 86901; 99285-25; Q9967